=== PATIENT | male | born 2000 | race African-American/Black ===

== ENCOUNTER 2022-06-30 21:43 | Emergency (ER) | payer OTHER ==
[2022-06-30 21:49] VITALS: PULSE 87; RESP 17; TEMP 98.5; BMI 21.7
[2022-06-30] MEDS ORDERED: ACETAMINOPHEN 500 MG TABLET (FP) PO ONE (22:03)
[2022-06-30 22:05] VITALS: BP 148/80
[2022-06-30] MEDS ORDERED: ACETAMINOPHEN 500 MG TABLET (FP) ONE (22:16)
== END 2022-06-30 22:21 | disposition home or self-care (01) ==
LOC: JERFT 21:43
DX: L72.0 Epidermal cyst (principal)
CPT/HCPCS: 99283-25